=== PATIENT | female | born 1950 | race Two or more races ===

== ENCOUNTER 2016-05-29 12:08 | Day surgery (SDC) | payer OTHER ==
[~2016-05-29] VITALS: Ht 152.4 cm; Wt 68.9 kg
[2016-05-29 12:43] VITALS: Ht 152.4 cm; Wt 68.9 kg
[2016-05-29] MEDS ORDERED: METF500T4 PO (13:11)
[2016-05-29] MEDS ORDERED: MIDAZOLAM 1 MG/ML 2 ML INJ ONE (13:11)
[2016-05-29] MEDS ORDERED: ASCO500C7 PO (13:11)
[2016-05-29] MEDS ORDERED: PROPOFOL 20 ML ONE (13:11)
[2016-05-29] MEDS ORDERED: CHOL100062 PO (13:11)
[2016-05-29] MEDS ORDERED: CARV25TA79 PO (13:11)
[2016-05-29] MEDS ORDERED: FER325 PO (13:11)
[2016-05-29] MEDS ORDERED: OMEP20CA16 PO (13:11)
[2016-05-29] MEDS ORDERED: ASPI-535 PO (13:11)
[2016-05-29] MEDS ORDERED: ATOR40TA68 PO (13:11)
[2016-05-29] MEDS ORDERED: CYCL7.5T9 PO (13:11)
[2016-05-29] MEDS ORDERED: TICA60TA PO (13:11)
[2016-05-29] MEDS ORDERED: LIDOCAINE 2% (SDV) 5 ML INJ ONE (13:11)
[2016-05-29] MEDS ORDERED: SITA100T8 PO (13:11)
[2016-05-29 13:15] VITALS: BP 174/75; PULSE 71; RESP 24
[2016-05-29 14:12] VITALS: BP 141/56; PULSE 68; RESP 24
--- NOTE | 2016-05-30 05:38 | GILP ---
DATE OF PROCEDURE: 05/29/2016 PREOPERATIVE DIAGNOSIS: Iron deficiency anemia. PROCEDURE DONE: Colonoscopy up to cecum. ANESTHESIOLOGIST: Dr. Licha Leyva POSTOPERATIVE DIAGNOSIS: Internal and external hemorrhoids, grade II, otherwise normal colon. DESCRIPTION OF PROCEDURE: The patient was put in left lateral decubitus after obtaining informed co nsent, was sedated, and monitored by the anesthesiologist. Rectal exam was done and external hemorr hoids noted. We advanced the Olympus video colonoscope. Internal hemorrhoids were also noted. The y were grade II. We advanced the scope all the way to cecum. Ileocecal valve and appendiceal openin g were identified. Cecum, ascending colon, transverse colon normal. Descending colon, sigmoid colo n normal. Rectum including retroflexion was done and just internal hemorrhoids, grade II, and exter nal hemorrhoids also noted on the way out. Upon removal of the scope, the patient had no complication. Plan will be to follow up in 2 weeks in the office. Dictated By: BHANU WOOD Conf#: [id number] DID#: [id number] CC: Oswald Wong;*EndCC*
--- NOTE | 2016-05-30 05:57 | GILP ---
DATE OF PROCEDURE: 05/29/2016 PREOPERATIVE DIAGNOSIS: Iron deficiency anemia, gastroesophageal reflux symptoms, diabetes. PROCEDURE DONE: Esophagogastroduodenoscopy and biopsy. ANESTHESIOLOGIST: Dr. Licha Leyva. POSTOPERATIVE DIAGNOSES: Distal esophagitis from 32 to 36 cm, 4 cm hiatus hernia. The erosive esop hagitis is considered grade II. Multiple erosions in the antrum. DESCRIPTION OF PROCEDURE: The patient was put in left lateral decubitus after obtaining informed co nsent, monitored oximetry, EKG, blood pressure. She was sedated and we advanced an Olympus video up per endoscope into the esophagus, stomach and duodenum. Distal erosive esophagitis grade II noted. A 4 cm hiatus hernia noted and multiple erosions in the antrum noted. Duodenum normal. Biopsies we re done from the stomach and also distal esophagitis. Plan will be to continue PPI and follow up as outpatient. Await for biopsy report. She may need esophageal motility and 24-hour pH monitoring if she continues to have these symptoms, if not responding to medicine. Dictated By: BHANU WOOD Conf#: [id number] DID#: [id number] CC: Oswald Wong;*EndCC*
== END 2016-05-29 15:37 | disposition home or self-care (01) ==
LOC: GIL 12:08 → MERGE 12:08 → GIL 12:13
PROVIDERS: ATTEND Internal Medicine
DX: K29.50 Unspecified chronic gastritis without bleeding (principal); K20.8 Other esophagitis; D50.9 Iron deficiency anemia, unspecified; K64.1 Second degree hemorrhoids; E11.9 Type 2 diabetes mellitus without complications; I10 Essential (primary) hypertension; E78.5 Hyperlipidemia, unspecified
CPT/HCPCS: 43239; 45378; 82962; 88305; 88312; 88313; J2250

== ENCOUNTER → 2017-07-27 | Outpatient (CLI) | END | disposition home or self-care (01) ==